=== PATIENT | male | born 1965 | race Caucasian/White ===

== ENCOUNTER 2016-12-19 12:04 | Emergency (ER) | payer OTHER ==
--- NOTE | 2016-12-19 12:30 | ER Document Report ---
ED Medical Screen (RME) - General Stated Complaint: POSSIBLE ALLERGIC REACTION Notes: Referred over by urgent care on doxycyline for emeka [place] spotted fever, started taking it 14 days ago. had been on the medication for 12 days on day three he started having facial/hand redness and pain in his sun exposed areas that has gotten worse over the course of the antibiotic I have greeted and performed a rapid initial assessment of this patient. A comprehensive ED assessment and evaluation of the patient, analysis of test results and completion of the medical decision making process will be conducted by additional ED providers.
--- NOTE | 2016-12-19 15:04 | ER Document Report ---
ED General - General Mode of Arrival: Ambulatory Information source: Patient TRAVEL OUTSIDE OF THE [place] IN LAST 30 DAYS: No - HPI Patient complains to provider of: Sun burn Associated symptoms: Other - See above - General Chief Complaint: Skin Problem Stated Complaint: Sun burn Notes: Patient is a 51 year old male who presents to the emergency department complaining of a sun burn and worried it may be an allergic reaction to a new medication. Patient originally went to urgent care for his complaint and was told to come here. Patient was recently treated for [place] spotted fever after going to the doctor for a viral cold, they found a tick and he was tested positive for the disease and given Doxycycline on 12/04. About 3 days after he started the antibiotic patient reported noticing that his sun exposed areas of skin had become burned and worsened while he was taking the medication. 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 Patient also complains of a headache and cough. (JC RIVERA) Past Medical History - General Information source: Patient - Social History Smoking Status: Never Smoker Chew tobacco use (# tins/day): No Frequency of alcohol use: None Drug Abuse: None Family History: Reviewed & Not Pertinent Patient has suicidal ideation: No Patient has homicidal ideation: No Past Surgical History: Reports: Hx Orthopedic Surgery - right wrist Review of Systems - Review of Systems Constitutional: No symptoms reported EENT: No symptoms reported Cardiovascular: No symptoms reported Respiratory: See HPI, Cough Gastrointestinal: No symptoms reported Genitourinary: No symptoms reported Male Genitourinary: No symptoms reported Musculoskeletal: No symptoms reported Skin: See HPI, Rash - burn Hematologic/Lymphatic: No symptoms reported Neurological/Psychological: See HPI, Headaches -: Yes All other systems reviewed and negative Physical Exam - Vital signs Interpretation: Normal - General General appearance: Appears well, Alert - Respiratory Respiratory status: No respiratory distress - Extremities General upper extremity: Normal inspection General lower extremity: Normal inspection - Neurological Neuro grossly intact: Yes Cognition: Normal Orientation: AAOx4 [place] Coma Scale Eye Opening: Spontaneous [place] Coma Scale Verbal: Oriented [place] Coma Scale Motor: Obeys Commands [place] Coma Scale Total: 15 Speech: Normal - Psychological Associated symptoms: Normal affect, Normal mood - Skin Skin Temperature: Warm Skin Moisture: Dry Skin Color: Other - First degree and mild second degree malloy on nose and malar areas of cheeks - Vital signs Vitals: Temp Pulse Resp BP Pulse Ox 97.7 F 53 L 16 139/79 H 100 12/19/16 12:32 12/19/16 12:32 12/19/16 12:32 12/19/16 12:32 12/19/16 12:32 (LUIS TUCKER) (JC RIVERA) Discharge - Discharge Clinical Impression: Sunburn, Drug-induced photosensitivity Additional Instructions: Sunburn: Sunburn is caused by prolonged exposure to ultraviolet light. This can be natural sunlight or a tanning bed. Your symptoms may include redness or blistering of the skin, fatigue, weakness, and chills that last two or three days. Treatment includes antiinflammatory pain medication, rest, cooling baths, and moisturizing skin cream. Occasionally, cortisone-type medicine is required for severe sunburns. Antihistamines may be helpful if itching is severe as you heal. You should avoid any exposure to ultraviolet light for the next week or two so that further skin damage can be avoided. In the future, you should use sunscreens. Frequent or prolonged ultraviolet light exposure can cause premature skin aging, skin cancers, and wrinkles. Call the doctor if you are not improving in two or three days. Report any drainage, increasing swelling, fever, chills, or other signs of infection. Your sunburn to the face probably occurred due to the photosensitivity that doxycycline causes and some people. Protect your skin from the sun until the burn completely heals. Use moisturizing lotions on the burned skin. Follow-up with a local medical doctor or return to emergency room if any problems. Roopaibe Attestation: 12/19/16 15:06 I personally performed the services described in the documentation, reviewed and edited the documentation which was dictated to the scribe in my presence, and it accurately records my words and actions. (LUIS TUCKER) Scribe Documentation - Scribe Written by Tonny:: tonny Ac, 12/19/16, [id number] acting as scribe for :: Marjorie
[2016-12-19 15:30] VITALS: BP 148/72
== END 2016-12-19 15:43 | disposition home or self-care (01) ==
LOC: ER 12:04
DX: L55.1 Sunburn of second degree (principal); L56.8 Other specified acute skin changes due to ultraviolet radiation; R05 Cough
CPT/HCPCS: 99283